=== PATIENT | female | born 1945 | race African-American/Black ===

== ENCOUNTER 2023-07-30 22:21 | Emergency (ER) | payer MEDICARE ==
[~2023-07-30] VITALS: Ht 152.4 cm; Wt 77.7 kg
[~2023-07-30 22:21] MED LIST: ASPI-825 PO; LISI40TA9 PO; METF-444 PO; METF-446 PO; SIMV-43 PO
[2023-07-30 22:27] VITALS: TEMP 98.8
[2023-07-30 22:59] VITALS: BP 189/98; PULSE 88; RESP 16
[2023-07-30 22:59] LABS: BASOPHILS % (AUTO) 0.6 % (0.0-2.0); EOSINOPHILS % (AUTO) 8.6 % (1.0-6.0); HEMATOCRIT 37.1 % (36-46); HEMOGLOBIN 11.8 g/dL (12.0-16.0); LYMPHOCYTES # (AUTO) 2.5 K/uL (1.0-4.8); LYMPHOCYTES % (AUTO) 28.6 % (22.0-44.0); MEAN CORPUSCULAR HEMOGLOBIN 26.8 pg (26.0-34.0); MEAN CORPUSCULAR HGB CONC 31.9 G/dL (31.0-37.0); MEAN CORPUSCULAR VOLUME 84 fL (80-100); MONOCYTES # (AUTO) 0.5 K/uL (0.1-1.0); MONOCYTES % (AUTO) 5.3 % (2.0-9.0); NEUTROPHILS # (AUTO) 5.1 K/uL (1.8-7.7); NEUTROPHILS % (AUTO) 56.9 % (40.0-70.0); PLATELET COUNT (AUTO) 248 K/uL (150-450); RED BLOOD CELL COUNT(AUTO) 4.41 MIL/uL (4.00-5.20); RED CELL DISTRIBUTION WIDTH 15.2 % (11.5-14.5); WHITE BLOOD COUNT (AUTO) 8.9 K/uL (4.5-11.0)
[2023-07-30 23:08] LABS: CALCIUM, TOTAL 9.5 mg/dL (8.8-10.5); CREATININE 1.1 mg/dL (0.60-1.30); POTASSIUM 4.2 mmol/L (3.5-5.1)
[2023-07-30 23:14] LABS: ALBUMIN 3.4 g/dL (3.4-5.0); BILIRUBIN,TOTAL 0.2 mg/dL (0.1-1.0); TOTAL PROTEIN, SERUM 7.8 g/dL (6.4-8.2)
[2023-07-30 23:15] LABS: TROPONIN I-HIGH SENSITIVITY 4 ng/L (<51)
== END 2023-07-31 00:13 | disposition home or self-care (01) ==
LOC: EMS 22:25
DX: I10 Essential (primary) hypertension (principal); E11.9 Type 2 diabetes mellitus without complications; E78.00 Pure hypercholesterolemia, unspecified; I25.10 Atherosclerotic heart disease of native coronary artery without angina pectoris; Z98.890 Other specified postprocedural states
CPT/HCPCS: 80053; 84484; 85025; 93005; 99284

== ENCOUNTER 2024-08-07 10:43 | Emergency (ER) | payer MEDICARE ==
[~2024-08-07] VITALS: Ht 154.9 cm; Wt 64.5 kg
[2024-08-07] MEDS ORDERED: SERT-438 PO (10:48)
[2024-08-07] MEDS ORDERED: LEVO75 PO (10:48)
[2024-08-07] MEDS ORDERED: ASPI-1444 PO (10:48)
[2024-08-07] MEDS ORDERED: LISI20TA24 PO (10:48)
[2024-08-07] MEDS ORDERED: GLIP10TA16 PO (10:48)
[2024-08-07] MEDS ORDERED: AMLO2.5T29 PO (10:48)
[2024-08-07 10:50] VITALS: TEMP 98.2
[2024-08-07 12:35] VITALS: BP 125/71; PULSE 64; RESP 17; O2SAT 98
[2024-08-07] MEDS ORDERED: LATA2.5D14 OU (12:52)
[2024-08-07] MEDS ORDERED: ACET-66 PO (12:52)
[2024-08-07] MEDS ORDERED: CLOB15OI21 TP (12:52)
[2024-08-07] MEDS: CETIRIZINE HCL 10 MG TABLET PO ONE (13:17)
[2024-08-07] MEDS ORDERED: CETI-450 PO (13:22)
== END 2024-08-07 13:52 | disposition home or self-care (01) ==
LOC: EMS 10:43
DX: H92.02 Otalgia, left ear (principal); E11.9 Type 2 diabetes mellitus without complications; E03.9 Hypothyroidism, unspecified; I10 Essential (primary) hypertension; E78.00 Pure hypercholesterolemia, unspecified; Z79.82 Long term (current) use of aspirin; Z79.84 Long term (current) use of oral hypoglycemic drugs; Z79.899 Other long term (current) drug therapy; Z98.890 Other specified postprocedural states
CPT/HCPCS: 99282; Z7502; Z7610